=== PATIENT | male | born 1955 | race African-American/Black ===

== ENCOUNTER 2019-03-09 11:07 | Emergency (ER) | payer OTHER, BC ==
[2019-03-09] MEDS: IBUPROFEN 600 MG TAB PO (11:42)
[2019-03-09] MEDS: DIPHTH/TET/ACEL PERTUSS (ADULT) 0.5 ML VIAL IM* (11:43)
== END 2019-03-09 13:35 | disposition home or self-care (01) ==
LOC: FTE 11:07
DX: S50.02XA Contusion of left elbow, initial encounter (principal); S63.501A Unspecified sprain of right wrist, initial encounter; I10 Essential (primary) hypertension; E11.9 Type 2 diabetes mellitus without complications; V11.4XXA Pedal cycle driver injured in collision with other pedal cycle in traffic accident, initial encounter; Z79.84 Long term (current) use of oral hypoglycemic drugs
CPT/HCPCS: 70450; 73080-LT; 73110-RT; 73130-LT; 90471; 90715; 99284-25